=== PATIENT | male | born 1965 | race Caucasian/White ===

== ENCOUNTER 2017-07-30 10:44 | Outpatient (CLI) | payer BC ==
--- NOTE | 2017-07-30 12:07 | ULT ---
THYROID ULTRASOUND: COMPARISON: 06/12/16. HISTORY: Thyroid nodules. TECHNIQUE: Multiplanar, au scale, and color Doppler images were obtained in a thyroid ultrasound. FINDINGS: The thyroid is homogeneous in appearance without nodules or cysts. The lobes measure 4.3 and 4.2 cm in length on the right and left, respectively. IMPRESSION: No significant thyroid abnormality. POS: TWYLA
== END 2017-07-30 10:45 | disposition home or self-care (01) ==
LOC: SCSULT 10:44
PROVIDERS: ATTEND Otolaryngology Otolaryngic Allergy
DX: E04.1 Nontoxic single thyroid nodule (principal); E05.90 Thyrotoxicosis, unspecified without thyrotoxic crisis or storm
CPT/HCPCS: 76536